=== PATIENT | female | born 2000 | race Caucasian/White ===

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

== ENCOUNTER 2019-04-03 22:25 | Emergency (ER) | payer SELFPAY ==
[~2019-04-03] VITALS: Ht 162.6 cm; Wt 59.1 kg
[~2019-04-03 22:25] MED LIST: ESTARYLLA 35 MC1 TAB PO
[2019-04-03 22:26] VITALS: TEMP 97.1
[2019-04-03] MEDS ORDERED: NATURAL IRON65 MG (23:26)
[2019-04-03 23:31] LABS: BASO % 0.4 % (0.0-2.0); EOS % 0.1 % (0-4.0); GRAN % 88.4 % (42.2-75.2); HEMATOCRIT 41.7 % (37.0-47.0); HEMOGLOBIN 13.4 g/dl (12.5-16.0); LYMPH # 0.7 (1.2-3.4); LYMPH % 7.4 % (20.0-51.0); MEAN CELL VOLUME 84 fl (80.0-100.0); MEAN CORPUSCULAR HEMOGLOBIN 27 pg (27.0-31.0); MEAN CORPUSCULAR HGB CONC 32 g/dl (33.0-37.0); MEAN PLATELET VOLUME 12.1 fl (7.4-10.4); MONO # 0.3 (0.1-0.6); MONO % 3.3 % (1.7-9.3); PLATELET COUNT 179 K/mm3 (130-400); RED BLOOD COUNT 4.94 M/mm3 (4.10-5.30); REDCELL DISTRIBUTION WIDTH-CV 16.1 % (11.5-14.5)
[2019-04-03 23:42] LABS: ALBUMIN 4.7 gm/dL (3.5-5.0); BILIRUBIN,TOTAL 0.6 mg/dL (0.0-1.0); CREATININE, serum 0.77 (0.52-1.25); POTASSIUM 4.2 mmol/L (3.4-5.0); TOTAL PROTEIN 7.9 gm/dL (6.4-8.2)
[2019-04-03 23:47] LABS: STREP SCREEN NEGATIVE
[2019-04-04] MEDS ORDERED: ZOFRAN ODT4 MG PO (00:53)
[2019-04-04 01:21] VITALS: BP 113/74; PULSE 82
== END 2019-04-04 01:22 | disposition home or self-care (01) ==
LOC: COL.ER 22:25
PROVIDERS: Physician Assistant
DX: G43.909 Migraine, unspecified, not intractable, without status migrainosus (principal)
CPT/HCPCS: J1885; J2405; J7030

== ENCOUNTER 2020-11-13 09:31 | Emergency (ER) | payer MEDICAID ==
[~2020-11-13] VITALS: Ht 162.6 cm; Wt 72.7 kg
[~2020-11-13 09:31] MED LIST changes: +NATURAL IRON65 MG; +ZOFRAN ODT4 MG PO
[2020-11-13 11:47] LABS: BASO # 0.1 (0.0-0.2); BASO % 0.7 % (0.0-2.0); EOS # 0.1 (0.0-0.7); EOS % 0.7 % (0-4.0); GRAN # 7.1 (1.4-6.5); GRAN % 80.7 % (42.2-75.2); HEMATOCRIT 37.5 % (37.0-47.0); HEMOGLOBIN 12.4 g/dl (12.5-16.0); LYMPH # 1.1 (1.2-3.4); LYMPH % 12.1 % (20.0-51.0); MEAN CELL VOLUME 86 fl (80.0-100.0); MEAN CORPUSCULAR HEMOGLOBIN 28 pg (27.0-31.0); MEAN CORPUSCULAR HGB CONC 33 g/dl (33.0-37.0); MEAN PLATELET VOLUME 14.2 fl (7.4-10.4); MONO # 0.5 (0.1-0.6); MONO % 5.3 % (1.7-9.3); PLATELET COUNT 147 K/mm3 (130-400); RED BLOOD COUNT 4.38 M/mm3 (4.10-5.30); REDCELL DISTRIBUTION WIDTH-CV 14.4 % (11.5-14.5)
[2020-11-13 11:55] LABS: ALANINE AMINOTRANSFERASE 12 U/L (4-34); ALBUMIN 4.2 gm/dL (3.5-5.0); ALKALINE PHOSPHATASE 57 U/L (50-136); ANION GAP 8 mmol/L (7-16); AST,SGOT 62 U/L (15-37); BILIRUBIN,TOTAL 0.4 mg/dL (0.0-1.0); BLOOD UREA NITROGEN 8 mg/dL (7-17); CALCIUM 9.3 mg/dL (8.4-10.2); CARBON DIOXIDE 26 mmol/L (22-30); CHLORIDE 103 mmol/L (98-107); CREATININE, serum 0.72 (0.52-1.25); GLUCOSE 89 mg/dL (74-106); LIPASE 184 U/L (23-300); SODIUM 136 mmol/L (137-145); TOTAL PROTEIN 6.9 gm/dL (6.4-8.2)
[2020-11-13 12:00] LABS: C-REACTIVE PROTEIN < 0.5 mg/dL (0.0-0.9)
[2020-11-13 12:22] LABS: COLLECTION METHOD CLEAN CATCH
[2020-11-13 12:34] LABS: MUCOUS Present /lpf; PH 8 (5-8); SQUAMOUS EPITHELIAL 0-2 /hpf; URINE APPEARANCE Clear; URINE BACTERIA Rare /hpf; URINE BILIRUBIN Negative (NEGATIVE); URINE BLOOD Negative (NEGATIVE); URINE COLOR Yellow; URINE GLUCOSE Negative (NEGATIVE); URINE KETONE Negative (NEGATIVE); URINE LEUKOCYTE ESTERASE Negative (NEGATIVE); URINE NITRATE Negative (NEGATIVE); URINE PROTEIN(semi-quant) Negative (NEGATIVE); URINE RBC None Seen /hpf; URINE UROBILINOGEN Negative (NEGATIVE)
[2020-11-13 13:41] VITALS: BP 108/69; PULSE 76; TEMP 98.3
== END 2020-11-13 13:41 | disposition home or self-care (01) ==
LOC: COL.ER 09:31
PROVIDERS: Nurse Practitioner Primary Care
DX: O21.0 Mild hyperemesis gravidarum (principal); Z3A.09 9 weeks gestation of pregnancy; Z88.6 Allergy status to analgesic agent
CPT/HCPCS: J1200; J2550; J7120

== ENCOUNTER 2020-11-19 20:27 | Emergency (ER) | payer MEDICAID ==
[~2020-11-19] VITALS: Ht 162.6 cm; Wt 72.7 kg
[2020-11-19 20:51] VITALS: TEMP 98.9
[2020-11-19 21:30] LABS: BASO # 0.1 (0.0-0.2); BASO % 0.5 % (0.0-2.0); EOS # 0.1 (0.0-0.7); EOS % 0.7 % (0-4.0); GRAN # 9.3 (1.4-6.5); GRAN % 79.1 % (42.2-75.2); HEMATOCRIT 37.5 % (37.0-47.0); HEMOGLOBIN 12.4 g/dl (12.5-16.0); LYMPH # 1.6 (1.2-3.4); LYMPH % 13.2 % (20.0-51.0); MEAN CELL VOLUME 84 fl (80.0-100.0); MEAN CORPUSCULAR HEMOGLOBIN 28 pg (27.0-31.0); MEAN CORPUSCULAR HGB CONC 33 g/dl (33.0-37.0); MEAN PLATELET VOLUME 13.6 fl (7.4-10.4); MONO # 0.7 (0.1-0.6); MONO % 6.2 % (1.7-9.3); PLATELET COUNT 156 K/mm3 (130-400); RED BLOOD COUNT 4.46 M/mm3 (4.10-5.30); REDCELL DISTRIBUTION WIDTH-CV 13.9 % (11.5-14.5)
[2020-11-19 21:41] LABS: ALBUMIN 4.5 gm/dL (3.5-5.0); BILIRUBIN,TOTAL 0.7 mg/dL (0.0-1.0); CALCIUM 9.5 mg/dL (8.4-10.2); CREATININE, serum 0.65 (0.52-1.25); POTASSIUM 3.7 mmol/L (3.4-5.0); TOTAL PROTEIN 7.3 gm/dL (6.4-8.2)
[2020-11-20] MEDS ORDERED: ZOFRAN ODT4 MG PO (00:44)
[2020-11-20 00:45] VITALS: BP 136/63; PULSE 78
== END 2020-11-20 00:56 | disposition home or self-care (01) ==
LOC: COL.ER 20:27
PROVIDERS: Emergency Medicine
DX: O21.0 Mild hyperemesis gravidarum (principal); Z3A.10 10 weeks gestation of pregnancy; Z88.6 Allergy status to analgesic agent
CPT/HCPCS: J2405; J7030; J7042

== ENCOUNTER 2021-03-23 16:29 | Outpatient (CLI) | payer MEDICAID ==
[~2021-03-23] VITALS: Ht 160 cm; Wt 74.1 kg
[2021-03-23 16:45] VITALS: BP 111/68; PULSE 91; TEMP 98.5
[2021-03-23 17:00] VITALS: TEMP 98.6
--- NOTE | 2021-03-23 17:11 | NUR ---
PT REPORTS SHE HAD INTERCOURSE THIS AFTERNOON A LITTLE BEFORE 1:00 AND HAD SOME BRIGHT RED BLEEDING AFTER AND THIS HAS HAPPENED EACH TIME THEY HAVE HAD INTERCOURSE DURING THE SINCE WEEK 15. THE BLEEDING SUBSIDED BUT THEN SHE WAS GETTING READY FOR WORK AND BLED THROUGH HER UNDERWEAR ONTO HER PANTS. ALSO REPORTS LOWER PELVIC PAIN, SOME DURING SEX, BUT MORESO AFTER AND PAIN ON HER SIDES. HAS BEEN MOVING TODAY AND HAS NOT DRANK MUCH WATER. FHT'S FOUND IN THE 130'S WITH MODERATE VARIABILITY AND ACCELS. DENIES FEELING THE PAIN IN HER SIDES SINCE SHE HAS BEEN HER BUT HAS HAD COUPLE EPISODES OF THE LOWER PELVIC PAIN. STATES "IT FEELS LIKE PERIOD CRAMPS." RECORDS REVIEWED WITH NO REPORT OF ABNORMAL PLACENTA AND PT DENIES ANY COMPLICATIONS. SVE WITH CERVIX CLOSED AND THICK. REDDISH PINK BLOOD ON GLOVE WITH SVE. PHONED DR LOERA AT 6336 WITH ABOVE INFORMATION GIVEN AND SHE WANTS AN ULTRASOUND ORDERED AND SHE WILL COME TO THE HOSPITAL TO DO A SPECULUM EXAM ON THE PT. PT INFORMED OF PLAN OF CARE.
--- NOTE | 2021-03-23 17:22 | NUR ---
ULTRASOUND HERE. MONITORS OFF AT THIS TIME.
--- NOTE | 2021-03-23 18:25 | NUR ---
Patient back to bed from walking, scant amount of dark red bleeding noted on peripad. Patient denies any cramping or pain. Dr. Bernal in room to evaluate.
--- NOTE | 2021-03-23 18:30 | NUR ---
Speculum exam performed by Dr. Bernal. Silver nitrate applied to the area of bleeding on cervix. Patient given bleeding precautions and instructed on pelvic rest. Discharge orders received. No further FHR monitoring per Dr. Bernal.
== END 2021-03-23 18:50 | disposition home or self-care (01) ==
LOC: LDRO 16:29 → LDR 16:56 → LDRO 18:50
DX: O46.8X3 Other antepartum hemorrhage, third trimester (principal); Z3A.28 28 weeks gestation of pregnancy
CPT/HCPCS: OP

== ENCOUNTER 2021-05-27 20:26 | Outpatient (CLI) | payer MEDICAID ==
[~2021-05-27] VITALS: Ht 162.6 cm; Wt 78.2 kg
[2021-05-27] MEDS ORDERED: PRENATAL (20:54)
[2021-05-27 21:15] VITALS: BP 112/71; PULSE 94; TEMP 98.4
[2021-05-27 21:45] VITALS: BP 114/76; PULSE 89
[2021-05-27 22:15] VITALS: BP 114/76; PULSE 89
--- NOTE | 2021-05-27 22:20 | NUR ---
ALL DC PAPERWORK AND INSTRUCTIONS REVIEWED AND UNDERSTOOD BY PT AND SPOUSE, DENIES FURTHER QUESTIONS OR CONCERNS, AMBULATORY OFF UNIT IN STABLE CONDITION
== END 2021-05-27 22:20 | disposition home or self-care (01) ==
LOC: LDRO 20:26
DX: Z34.90 Encounter for supervision of normal pregnancy, unspecified, unspecified trimester (principal); Z3A.00 Weeks of gestation of pregnancy not specified

== ENCOUNTER 2021-06-06 15:05 | Outpatient (CLI) | payer MEDICAID ==
[~2021-06-06] VITALS: Ht 162.6 cm; Wt 76.8 kg
[~2021-06-06 15:05] MED LIST changes: +PRENATAL
[2021-06-06 15:30] VITALS: BP 116/72; PULSE 94; TEMP 98.2
--- NOTE | 2021-06-06 15:30 | NUR ---
PATIENT ARRIVES TO LDR6 WITH C/O LEAKING TWO SMALL AMOUNTS OF CLEAR FLUID THAT STARTED THIS MORNING. DENIES VAGINAL BLEEDING, REPORTS ACTIVE MOVEMENT. EFM ON. UTERUS PALPATES SOFT AND NONTENDER. 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 PATIENT STATES CERVIX WAS 3CM/90% AT LAST EXAM. NITRAZINE NEGATIVE. SVE DONE WITH NO CERVICAL CHANGE NOTED, BOW FELT TAKEN WATER TO DRINK AND DISCUSSED PLAN FOR LABOR EVALUATION
== END 2021-06-06 16:10 | disposition home or self-care (01) ==
LOC: LDRO 15:05 → LDR 15:15 → LDRO 16:10 → LDR 06-07 16:31
DX: O42.92 Full-term premature rupture of membranes, unspecified as to length of time between rupture and onset of labor (principal); Z3A.38 38 weeks gestation of pregnancy
CPT/HCPCS: OP

== ENCOUNTER 2021-06-10 22:32 | Outpatient (CLI) | payer MEDICAID ==
[~2021-06-10] VITALS: Ht 162.6 cm; Wt 77.7 kg
[2021-06-10 23:00] VITALS: BP 119/74; PULSE 95; TEMP 98
--- NOTE | 2021-06-10 23:00 | NUR ---
G1 at 39 weeks and 2 days arrives to unit with complaint of vaginal bleeding and increased pelvic pressure after intercourse. Pt reports having "chunks of blood" when she wiped. On arrival, no bleeding noted on peripad. Pt reports feeling good movement, denies large gush of fluid. Reports feeling constant cramping feeling similar to period cramps. Pt denies headaches, blurry vision or RUQ pain. Clean gown on. Pt oriented to room, call light within reach, bed in low and locked position. US and toco explained and applied. Vital signs obtained. Plan of care reviewed. Admission assessment started. SVE /-3, no blood on exam glove.
[2021-06-10] MEDS ORDERED: FERROUSAL325 MG (23:11)
--- NOTE | 2021-06-10 23:30 | NUR ---
Monitors off, pt up to void. Pt reports contractions feeling the same, slightly stronger than period cramps but they feel like they are constant.
[2021-06-10 23:50] VITALS: BP 127/84; PULSE 91
--- NOTE | 2021-06-11 | NUR ---
SVE unchanged from previous exam. Small amount of bleeding noted on exam glove. Reviewed discharge plan with patient and return precautions, pt verbalized understanding. Pt seen ambulating off unit with FOB at 0015.
== END 2021-06-11 00:15 | disposition home or self-care (01) ==
LOC: LDRO 22:32 → LDR 22:45 → LDRO 06-11 00:15
DX: O62.9 Abnormality of forces of labor, unspecified (principal); O46.93 Antepartum hemorrhage, unspecified, third trimester; Z3A.39 39 weeks gestation of pregnancy
CPT/HCPCS: OP

== ENCOUNTER 2021-06-15 15:51 | Inpatient (IN) | payer MEDICAID ==
[2021-06-15] VITALS (28 sets, daily range): BP systolic 110–130; BP diastolic 63–84; PULSE 72–96; TEMP 97.6–98.4
[~2021-06-15] VITALS: Ht 162.6 cm; Wt 77.8 kg
[~2021-06-15 15:51] MED LIST changes: +FERROUSAL325 MG
--- NOTE | 2021-06-15 16:00 | NUR ---
Patient ambulates here with signicant other, changed into gown, FHR/TOCO monitors placed and explained. Patient states "I noticed some fluid about 0200 this morning and just thought i peed, and then continued to leak some fluid througout the day, was clear/a little yellow". Patient denies any regular contracitons/vaginal bleeding/decreased movement. Plan of care discussed. 1605: SVE-4/90/-2 and amniotest positive with clear fluid noted. Dr. Bernal at nurses station and orders to admit and start pitocin.
--- NOTE | 2021-06-15 16:40 | NUR ---
IV started in left upper arm, blood obtained and to lab, LR infusing. 1644: Pitocin discussed with patient and patient agrees with plan. Pitocin started at 2mU/hr per protocol. Plan of care discussed.
[2021-06-15 17:26] LABS: BASO % 0.5 % (0.0-2.0); EOS # 0.1 (0.0-0.7); EOS % 0.7 % (0-4.0); GRAN # 6.2 (1.4-6.5); GRAN % 73.1 % (42.2-75.2); LYMPH # 1.3 (1.2-3.4); LYMPH % 15.7 % (20.0-51.0); MEAN CELL VOLUME 76 fl (80.0-100.0); MEAN CORPUSCULAR HGB CONC 30 g/dl (33.0-37.0); MONO # 0.8 (0.1-0.6); MONO % 9.5 % (1.7-9.3); PLATELET COUNT 137 K/mm3 (130-400); RED BLOOD COUNT 3.98 M/mm3 (4.10-5.30); REDCELL DISTRIBUTION WIDTH-CV 16.6 % (11.5-14.5)
[2021-06-15 17:28] LABS: HEMATOCRIT 30.3 % (37.0-47.0); HEMOGLOBIN 9.1 g/dl (12.5-16.0); MEAN CORPUSCULAR HEMOGLOBIN 23 pg (27.0-31.0)
--- NOTE | 2021-06-15 18:55 | NUR ---
Covid vaccination status reivewd with pt. Pt reports 2nd Covid vaccination 02/10. Discussed hospital policy to swab all inpatients. Pt agrees to Covid swab. Pt reports "these contractions are getting worse, I'll take an epidural whenever they have time.
--- NOTE | 2021-06-15 19:00 | NUR ---
Pt placed on isolation precautions while awaiting Covid swab results. PT vaccinated and with no Covid symptoms.
--- NOTE | 2021-06-15 19:40 | NUR ---
Back to bed, sits at edge of bed for epidural placement. Esvin CLAIM BENEFIT SPECIALIST in for epidural placement, see anesthesia record.
--- NOTE | 2021-06-15 19:45 | NUR ---
EFM tracing Maternal heart rate while pt sitting up for epidural,
--- NOTE | 2021-06-15 20:20 | NUR ---
Isolation precautions removed. Pt's Covid swab resulted as negative.
[2021-06-16] VITALS (25 sets, daily range): BP systolic 114–139; BP diastolic 60–86; PULSE 60–123; TEMP 98–100
--- NOTE | 2021-06-16 01:30 | NUR ---
Zofran 4mg IV for nausea. Emesis 200cc @ 0539
--- NOTE | 2021-06-16 02:00 | NUR ---
SVE Ant Rim. Pt reports feeling Ctx at fundus. HOB lowered to 45%, pt pushes epidural button.
--- NOTE | 2021-06-16 02:31 | NUR ---
Pushing instructions given.
--- NOTE | 2021-06-16 02:50 | NUR ---
Dr Bernal calls in for report. Pt pushing. FHT's to 60's with pushing, gradual return to baseline after pushing and contraction subsides.
--- NOTE | 2021-06-16 03:05 | NUR ---
Emesis 450cc. FHT's to 100's with emesis, returns to baseline after.
--- NOTE | 2021-06-16 03:44 | NUR ---
Dr Bernal called to come for delivery.
--- NOTE | 2021-06-16 03:55 | NUR ---
Pushing well. FHT's to 90's with pushing/contraction, returns to baseline over 2min and pushing stopped. Dr Bernal called to come for delivery.
--- NOTE | 2021-06-16 04:01 | NUR ---
of Male infant by Dr Bernal.
--- NOTE | 2021-06-16 04:10 | NUR ---
Lochia brisk with small clots Bi-manual exam by Dr Bernal yields several small clots. Fundus firms. 0749 Hemabate to LAT.
--- NOTE | 2021-06-16 04:18 | NUR ---
Repair complete, pericare completed, labia swollen. Ice pack to perineum, bed back together.
--- NOTE | 2021-06-16 05:30 | NUR ---
Zofran IV for nausea. 650cc emesis @ 7252
[2021-06-16] MEDS ORDERED: MOTRIN 800800 MG/TAB PO (13:08)
[2021-06-17 04:17] VITALS: BP 116/72; PULSE 70; TEMP 98
[2021-06-17 04:50] VITALS: BP 104/70; PULSE 58; TEMP 98
--- NOTE | 2021-06-17 04:50 | NUR ---
FOB TO NURSES STATION REQUESTING WARM BLANKET, THIS NURSE ENTERS ROOM TO FIND PATIENT SHAKING IN BED AND REPORTING "A LOT OF BLOOD LOSS" WITH RECENT VOID. PT HAD ALREADY FLUSHED THE TOILET SO UNABLE TO VIEW. WARM BLANKET ON, PT STOPS SHAKING, VITAL SIGNS STABLE, AND PT STATES "I THINK I AM JUST TIRED ACTUALLY." FUNDUS FIRM AT THIS TIME, LOCHIA WNL/SMALL/NO CLOTS. WILL CONTINUE TO MONITOR. BABY TO NURSERY TO ALLOW MOTHER TO REST.
[2021-06-17 09:30] VITALS: BP 109/65; PULSE 74; TEMP 97.9
--- NOTE | 2021-06-17 10:13 | NUR ---
Initial visit; Parents thanked security program manager for offering congratulations and God's blessings for the of their son. Senior Field Engineer thanked family for choosing [facility].
[2021-06-17 16:25] VITALS: BP 113/70; PULSE 78; TEMP 98.1
[2021-06-17 21:10] VITALS: BP 109/68; PULSE 67; TEMP 98.2
--- NOTE | 2021-06-18 07:06 | NUR ---
REPROT RECEIVED FROM OFF GOING RN, PRISCILLA Choi. CARE TAKEN OVER BY THIS RN.
[2021-06-18 08:02] VITALS: BP 116/74; PULSE 73; TEMP 97
== END 2021-06-18 12:40 | disposition home or self-care (01) | DRG 807 ==
LOC: LDRO 15:51 → OB 16:13 → LDR 16:13 → OB 06-16 07:00
PROVIDERS: Student in an Organized Health Care Education/Training Program; ADMIT Obstetrics & Gynecology
PROC: 10E0XZZ Delivery of Products of Conception, External Approach (ICD-10-PCS; principal; 2021-06-16)
PROC: 3E033VJ Introduction of Other Hormone into Peripheral Vein, Percutaneous Approach (ICD-10-PCS; 2021-06-16)
PROC: 0HQ9XZZ Repair Perineum Skin, External Approach (ICD-10-PCS; 2021-06-16)
DX: O48.0 Post-term pregnancy (principal); Z37.0 Single live birth; Z3A.40 40 weeks gestation of pregnancy; O99.344 Other mental disorders complicating childbirth; O99.02 Anemia complicating childbirth; D64.89 Other specified anemias; Q89.9 Congenital malformation, unspecified; O70.0 First degree perineal laceration during delivery; O42.02 Full-term premature rupture of membranes, onset of labor within 24 hours of rupture; D35.2 Benign neoplasm of pituitary gland
CPT/HCPCS: J2405; J2540; J2590; J7120

== ENCOUNTER 2022-06-14 19:55 | Outpatient (CLI) | payer BC, MEDICAID ==
[~2022-06-14 19:55] MED LIST changes: +MOTRIN 800800 MG/TAB PO
--- NOTE | 2022-06-14 20:30 | NUR ---
PT PRESENTED TO L&D WITH C/O TRYING TO MOVE A KITTEN AND SHE FELL ONTO HER HANDS AND DOWN TO ABD ON RIGHT SIDE. THERE WERE NO NOTED BRUISES, SCRAPES OR CUTS ANYWHERE ON HER BODY. SHE DENIES ANY BLEEDING, UC'S LEAKING FLUID. SHE STATES SHE IS SORE AND IT FEELS CRAMPS IN LOWER RIGHT ABD. SHE HAS NOT TAKEN ANY MEDS FOR IT. SHE HAS BEEN MOVING FURNITURE TODAY ALSO.SHE FEELS SORE FROM DOING THAT ALL DAY. BABY IS ACTIVE AND KICKING. DR RHODES NOTIFIED AND GIVEN UPDATE. ORDERS TO DC TO HOME. PT MAY TAKE TYLENOL IF SHE WANT TO. SOAK IN WARM TUB. PT TO RETURN IF SHE HAS BLEEDING OR REGULAR UC'S. SROM. PT VERBALIZED UNDERSTANDING. PT GIVEN WRITTEN AND VERBAL DISCHARGE INSTRUCTIONS AND SHE LEFT AMB OUT WITH HER SPOUSE.
== END 2022-06-14 20:30 | disposition home or self-care (01) ==
LOC: LDRO 19:55
DX: Z34.90 Encounter for supervision of normal pregnancy, unspecified, unspecified trimester (principal); Z3A.00 Weeks of gestation of pregnancy not specified

== ENCOUNTER 2022-09-25 18:00 | Outpatient (CLI) | payer BC, MEDICAID ==
[~2022-09-25] VITALS: Ht 160 cm; Wt 80.0 kg
[~2022-09-25 18:00] MED LIST changes: +ZOFRAN 4MG T4 MG/TAB PO
[2022-09-25 18:30] VITALS: BP 107/65; PULSE 90
[2022-09-25 19:23] LABS: COLLECTION METHOD CLEAN CATCH
[2022-09-25 19:35] LABS: URINE APPEARANCE Clear (CLEAR/HAZY); URINE BLOOD Negative (NEGATIVE); URINE COLOR Amber (YELLOW); URINE GLUCOSE Negative (NEGATIVE); URINE KETONE Negative (NEGATIVE); URINE NITRATE Negative (NEGATIVE); URINE PROTEIN(semi-quant) Negative (NEGATIVE); URINE UROBILINOGEN 0.2 E.U/dL (0.2-1.0)
[2022-09-25 19:39] LABS: MUCOUS Present (NOT PRESENT); URINE BACTERIA None Seen /hpf (NONE SEEN)
--- NOTE | 2022-09-25 19:57 | NUR ---
IVF BOLUS COMPLETE AT 1944, IV SALINE LOCKED. PT OFF MONITOR AT [address] RHODES CONTACTS CHARGE NURSE STATING SHE REVIEWED LABS & STRIP, PT MAY DC HOME ONCE IVF BOLUS IS COMPLETE. MONITORING DC'D. THIS NURSE DISCUSSED NORMAL LAB RESULTS AND REASSURING MONITORING WITH PT AND SPOUSE. PT STATES HER PAIN CONTINUES INTERMITTENTLY AT BILATERAL LOWER SIDE OF ABDOMEN, DESCRIBES STABBING PAIN BUT SHE IS UNABLE TO RATE PAIN. THIS NURSE CALLED DR. RHODES AT 1956 TO DISCUSS PT'S CONTINUED PAIN. PER DR. RHODES PT MAY TAKE 2 PERCOCETS PRIOR TO DISCHARGE IF SPOUSE IS DRIVING HER HOME AND SHE MAY TAKE BENADRYL AT HOME TO ASSIST WITH SLEEP. THIS OPTION DISCUSSED WITH PT BUT PT STATES SHE IS ALLERGIC TO BOTH MEDS AND WILL BE OKAY WITHOUT ANY INTERVENTION. INT DC'D, MONITORS REMOVED. PT TO CHANGE INTO OWN CLOTHES WHILE DISCHARGE PAPERWORK PREPARED.
== END 2022-09-25 20:20 | disposition home or self-care (01) ==
LOC: LDRO 18:00
PROVIDERS: Obstetrics & Gynecology
DX: Z34.90 Encounter for supervision of normal pregnancy, unspecified, unspecified trimester (principal); Z3A.00 Weeks of gestation of pregnancy not specified

== ENCOUNTER 2022-09-29 06:27 | Inpatient (IN) | payer BC, MEDICAID ==
[2022-09-29] VITALS (34 sets, daily range): BP systolic 106–138; BP diastolic 55–95; PULSE 77–104; TEMP 98.1–98.2
[~2022-09-29] VITALS: Ht 162.6 cm; Wt 80.9 kg
[2022-09-29 07:45] LABS: BASO % 0.4 % (0.0-2.0); EOS # 0.1 K/mm3 (0.0-0.7); GRAN # 5.1 K/mm3 (1.4-6.5); GRAN % 70.4 % (42.2-75.2); LYMPH # 1.5 K/mm3 (1.2-3.4); LYMPH % 20.4 % (20.0-51.0); MEAN CELL VOLUME 74 fl (80.0-100.0); MEAN CORPUSCULAR HGB CONC 30 g/dl (33.0-37.0); MONO # 0.5 K/mm3 (0.1-0.6); MONO % 7.4 % (1.7-9.3); PLATELET COUNT 112 K/mm3 (130-400); REDCELL DISTRIBUTION WIDTH-CV 16.7 % (11.5-14.5)
[2022-09-29 07:50] LABS: HEMATOCRIT 28.8 % (37.0-47.0); HEMOGLOBIN 8.7 g/dl (12.5-16.0); MEAN CORPUSCULAR HEMOGLOBIN 22 pg (27-31)
--- NOTE | 2022-09-29 08:25 | NUR ---
PT AMBULATORY TO L&D UNIT ACCOMPANIED BY SPOUSE. TOCO/EFM ON PT. CATEGORY 1 STRIP NOTED. VITAL SIGNS WNL. CONSENTS REVIEWED AND SIGNED. DENIES CONTRACTIONS, REPORTS NORMAL MOVEMENT, DENIES BLEEDING.
--- NOTE | 2022-09-29 08:52 | NUR ---
PT TO SITTING POSITION ON EDGE OF BED FOR EPIDURAL PLACEMENT. LEANA MATTHEWS AT BEDSIDE. ALL CONSENTS SIGNED AND PROCEDURE REVIEWED. DIFFICULTY TRACING EFM/TOCO DUE TO MATERNAL POSITIONING. 0842: SINGLE SHOT PER CASSIE DUEÑAS. PT TOLERATED PROCEDURE WELL.
--- NOTE | 2022-09-29 11:28 | NUR ---
AT BEDSIDE. SVE /-2. BLOODY SHOW WITH SVE. PT TEARFUL AND COMPLAINING OF LOWER ABDOMINAL PAIN (CONTINUOUS). EPIDURAL BUTTON PUSHED FOR BOLUS. PT PLACED IN RL STIRRUP POSITION. PT REMAINS NAUSEOUS AND SHAKY. WILL CONTINUE TO MONITOR. REMAINS ON UNIT.
--- NOTE | 2022-09-29 12:22 | NUR ---
1222: AT BEDSIDE. SVE COMPLETE, BLOODY SHOW. -2 STATION. ALVARADO REMOVED. PT BEGINS PUSHING WITH . ALL APPROPRIATE STAFF NOTIFIED OF PT PUSHING. 1228: DECREASED FHT'S INTO THE 70'S/80'S. PITOCIN 1/2'D TO 10MU PER VORMichelle BENOIT. STILL AT BEDSIDE. O2 PLACED PER VORB ON PT @ 10L VIA MASK. PT PLACED IN RL POSITION WITH LL IN STIRRUP TO RECOVER. 1245: PT BEGINS PUSHING WITH AGAIN. DECREASED FHT'S INTO THE 70'S/80'S WITH PUSHING. DISCUSSES POTENTIAL VACUUM DELIVERY VS. CSECTION RISKS. PT AGREEBALE TO CONTINUE WITH VACUUM IF NECESSARY. PT PLACED IN RL POSITION WITH LL IN STIRRUP TO RECOVER. EFM TRACING CATEGORY 1 IN RECOVERY POSITION. FHT BASELINE 125. MODERATE VARIABILITY. 1300: PT IN HANDS AND KNEES POSITION TO ATTEMPT TO ROTATE INFANT. PER DR RHODES BABY IS IN OP POSITION. PT TOLERATING HANDS AND KNEES WELL. 1322: AT BEDSIDE PUSHING WITH PT. DECREASED HEART TONES. VACUUM APPLIED TO HEAD PER . ROTATES AND BEGINS MAKING IT'S DESCENT. VACUUM REMOVED AFTER 1 PULL AND ZERO POP-OFFS. PT CONTINUES PUSHING. 1325: VAD OF VIABLE MALE AT THIS TIME. SHOULDER DYSTOCIA X20 SECONDS. PT SUCCESFFULY DELIVERED IN SUPINE POSITION, WITH NORBERTO AND SUPRAPUBIC PRESSURE. NUCHAL X1 NOTED AT DELIVERY WELL. PLACED ON MATERNAL ABDOMEN. CARE OF INFANT ASSUMED BY JAYARN. CORD CLAMPED X2 AND CUT BY FOB. STRONG CRY NOTED. INITIAL SCORE OF 8 PER JAYA. 1327: OF PLACENTA PER . PITOCIN BOLUS INFUSING PER PROTOCOL. SCANT LOCHIA. NO CLOTS NOTED. FUNDUS FIRM AT UMBILICUS WITH MASSAGE. PT'S PERINEUM INTACT. NO SUTURES NEEDED. EBL FOR DELIVERY 200CC PER REPORT. WILL CONTINUE WITH PP CARES PER PROTOCOL.
--- NOTE | 2022-09-29 16:56 | NUR ---
PT REPORTS URGE TO VOID AND DESIRE TO GET UP. VITAL SIGNS REMAIN STABLE AND BLEEDING SCANT. FUNDUS FIRM AT THE UM[place], NO GUSHES OR CLOSTS NOTED WITH FUNDAL RUB. PT ABLE TO RAISE AND HOLD BLE FOR 5-10 SECONDS. PT SITTING ON THE EDGE OF BED DANGLEING FEET, DENIES DIZZINESS, EPIDURAL CATHETER REMOVED. PT UP TO BATHROOM VIA [place]. MOTHER VOIDS AND PLACE IN CLEAN GOWN/PAD. MINIMAL BLEEDING NOTED. MOTHER TRANSFERED TO ROOM VIA [place]mer[place].
[2022-09-29] MEDS ORDERED: MOTRIN 800800 MG/TAB PO (20:13)
[2022-09-30] VITALS: BP 107/71; PULSE 84; TEMP 97.7
[2022-09-30 04:00] VITALS: BP 119/66; PULSE 88; TEMP 97.9
[2022-09-30 08:00] VITALS: BP 115/69; PULSE 80; TEMP 98
--- NOTE | 2022-09-30 09:48 | NUR ---
Initial visit; Parents thanked Cyber Security Manager for offering congratulations and God's blessings for the of their son. Cyber Security Manager thanked family for choosing [facility].
[2022-09-30 21:15] VITALS: BP 114/65; PULSE 76; TEMP 98.1
[2022-10-01 08:00] VITALS: BP 121/81; PULSE 88; TEMP 98.5
== END 2022-10-01 12:05 | disposition home or self-care (01) | DRG 807 ==
LOC: OB 06:27 → LDR 06:27 → OB 13:01
PROVIDERS: ADMIT Obstetrics & Gynecology
PROC: 10D07Z6 Extraction of Products of Conception, Vacuum, Via Natural or Artificial Opening (ICD-10-PCS; principal; 2022-09-29)
PROC: 10907ZC Drainage of Amniotic Fluid, Therapeutic from Products of Conception, Via Natural or Artificial Opening (ICD-10-PCS; 2022-09-29)
PROC: 3E033VJ Introduction of Other Hormone into Peripheral Vein, Percutaneous Approach (ICD-10-PCS; 2022-09-29)
DX: O45.93 Premature separation of placenta, unspecified, third trimester (principal); Z37.0 Single live birth; O66.0 Obstructed labor due to shoulder dystocia; O76 Abnormality in fetal heart rate and rhythm complicating labor and delivery; O99.344 Other mental disorders complicating childbirth; F32.A Depression, unspecified; F41.9 Anxiety disorder, unspecified; O69.81X0 Labor and delivery complicated by cord around neck, without compression, not applicable or unspecified; Z3A.37 37 weeks gestation of pregnancy; Z88.5 Allergy status to narcotic agent
CPT/HCPCS: J2590; J7120

== ENCOUNTER 2023-12-22 14:56 | Emergency (ER) | payer BC ==
[~2023-12-22] VITALS: Ht 160 cm; Wt 72.7 kg
[2023-12-22 17:39] LABS: COLLECTION METHOD CLEAN CATCH
[2023-12-22 17:43] LABS: BASO # 0.1 K/mm3 (0.0-0.2); BASO % 1.1 % (0.0-2.0); EOS # 0.1 K/mm3 (0.0-0.7); GRAN # 4.2 K/mm3 (1.4-6.5); GRAN % 63.4 % (42.2-75.2); HEMATOCRIT 40.6 % (37.0-47.0); HEMOGLOBIN 13.1 g/dl (12.5-16.0); LYMPH # 1.7 K/mm3 (1.2-3.4); LYMPH % 25.6 % (20.0-51.0); MEAN CELL VOLUME 85 fl (80.0-100.0); MEAN CORPUSCULAR HEMOGLOBIN 27 pg (27-31); MEAN CORPUSCULAR HGB CONC 32 g/dl (33.0-37.0); MEAN PLATELET VOLUME 13.4 fl (7.4-10.4); MONO # 0.5 K/mm3 (0.1-0.6); MONO % 7.7 % (1.7-9.3); PLATELET COUNT 210 K/mm3 (130-400); RED BLOOD COUNT 4.78 M/mm3 (4.10-5.30); REDCELL DISTRIBUTION WIDTH-CV 13.5 % (11.5-14.5)
[2023-12-22] MEDS ORDERED: NS 1,000 ML IV ONE (17:45)
[2023-12-22] MEDS ORDERED: Morphine 4 MG/ML VIAL IV ONE (17:45)
[2023-12-22] MEDS ORDERED: Ondansetron 4 MG/2 ML VIAL IV ONE (17:45)
[2023-12-22 17:56] LABS: ALBUMIN 4.5 gm/dL (3.5-5.0); BILIRUBIN,TOTAL 0.4 mg/dL (0.2-1.2); C-REACTIVE PROTEIN 0.25 mg/dL (0.00-0.50); CALCIUM 9.5 mg/dL (8.4-10.2); CREATININE, serum 0.88 mg/dL (0.57-1.11); POTASSIUM 3.7 mmol/L (3.5-4.5); TOTAL PROTEIN 7.4 gm/dL (6.2-8.1)
[2023-12-22 18:22] LABS: PH 5.5 (5.0-8.5); URINE APPEARANCE Clear (CLEAR/HAZY); URINE BLOOD Negative (NEGATIVE); URINE COLOR Yellow (YELLOW); URINE GLUCOSE Negative (NEGATIVE); URINE KETONE Negative (NEGATIVE); URINE NITRATE Negative (NEGATIVE); URINE PROTEIN(semi-quant) Negative (NEGATIVE); URINE UROBILINOGEN 0.2 E.U/dL (0.2-1.0)
[2023-12-22 19:05] LABS: MUCOUS Present (NOT PRESENT); SQUAMOUS EPITHELIAL 0-2 /hpf (0-10); URINE BACTERIA None Seen /hpf (NONE SEEN); URINE RBC 0-2 /hpf (0-2)
[2023-12-22] MEDS ORDERED: Iohexol 300 - 100 ML VIAL IV ONE (19:16)
[2023-12-22] MEDS ORDERED: NS 60 ML IV ONE (19:17)
[2023-12-22] MEDS ORDERED: ULTRAM 50MG TAB50 MG PO (20:28)
[2023-12-22] MEDS ORDERED: Home traMADol 50 MG #2 TAB/PACK PO ONE (20:30)
[2023-12-22 20:41] VITALS: BP 123/85; PULSE 78; TEMP 98.5
== END 2023-12-22 20:41 | disposition home or self-care (01) ==
LOC: COL.ER 14:56
PROVIDERS: Nurse Practitioner
DX: R10.11 Right upper quadrant pain (principal); R10.31 Right lower quadrant pain
CPT/HCPCS: J2270; J2405; J7030; Q9967